=== PATIENT | male | born 1945 | race Caucasian/White ===

== ENCOUNTER 2023-10-25 09:41 | Inpatient (IN) | payer MEDICARE ==
[~2023-10-25] VITALS: Ht 182.9 cm; Wt 111.9 kg
[2023-10-25] VITALS (13 sets, daily range): BP systolic 92–173; BP diastolic 52–123; PULSE 58–92; TEMP 97.5–98.5
[~2023-10-25 09:41] MED LIST: ALBUTEROL SULFAT3 M3 IH; AMOXICILLIN 8751 TAB PO; ASPIRIN E.C. 8181 MG PO; ATROVENT I0.2 MG/1 M IH; CHLOR TRIMETON 44 MG PO; CORDARONE200 MG/TAB PO; COUMADIN 3MG3 MG/TAB PO; CRESTOR 10MG10 MG PO; ELIQUIS 5MG PO; GOOD SENSE400 MG/5 M PO; IMODIUM A-D2 MG PO; K-DUR 10 MEQ T10 MEQ PO; LASIX 40MG TABL40 MG PO; LIPITOR 40MG TA40 MG PO; LOPRESSOR 550 MG/TAB PO; MAG-AL LIQUID 230 ML PO; MASON NATURAL2000 IU PO; MULTI VITAMINS1 TAB PO; MULTIPLE VITAMI1 CAP PO; NO HOME MEDICATIONS; NORCO 325 MG-101 TAB PO; OMNICEF 300MG300 MG PO; PACERONE200 MG PO; PEPCID 20MG TAB20 MG PO; PERCOCET 325 MG1 TA2 PO; PLAVIX 75MG TAB75 MG PO; PRAVACHOL80 MG PO; PRINIVIL20 MG PO; PRINZIDE 25 MG-1 TAB PO; PROAIR HFA0.09 MG/AC IH; PROTONIX 40MG T40 MG PO; PULMICORT0.5 MG/2 M IH; SENEXON-S 50-81 EACH PO; TAMBOCOR50 MG PO; TENORMIN 2525 MG/TAB PO; TOPROL XL 25MG25 MG PO; TOPROL XL 50MG50 MG PO; TYLENOL 325MG325 MG PO; TYLENOL 500MG500 MG PO; ULTRAM 50MG TAB50 MG PO; XALATAN EYE DROPS OD; XARELTO20 MG PO; ZITHROMAX 250M250 MG PO; ZYLOPRIM 100MG100 MG PO; ZYRTEC 10MG10 MG PO
[2023-10-25] MEDS ORDERED: NS 1,000 ML IV ONE (09:45)
[2023-10-25 10:40] LABS: BASO % 0.4 % (0.0-2.0); EOS % 0.1 % (0.0-4.0); GRAN # 7.4 K/mm3 (1.4-6.5); HEMATOCRIT 43.9 % (42.0-52.0); HEMOGLOBIN 13.7 g/dl (13.5-18.0); LYMPH # 1.7 K/mm3 (1.2-3.4); MEAN CELL VOLUME 88 fl (80.0-100.0); MEAN CORPUSCULAR HEMOGLOBIN 27 pg (27-31); MEAN CORPUSCULAR HGB CONC 31 g/dl (33.0-37.0); MEAN PLATELET VOLUME 11.9 fl (7.4-10.4); MONO # 0.6 K/mm3 (0.1-0.6); MONO % 6.3 % (1.7-9.3); PLATELET COUNT 161 K/mm3 (130-400); REDCELL DISTRIBUTION WIDTH-CV 15.9 % (11.5-14.5)
[2023-10-25 10:55] LABS: ALBUMIN 2.9 g/dL (3.4-4.8); BILIRUBIN,TOTAL 0.8 mg/dL (0.2-1.2); CALCIUM 9.5 mg/dL (8.4-10.2); CREATININE, serum 1.57 mg/dL (0.72-1.25); POTASSIUM 3.1 mEq/L (3.5-4.5); TOTAL PROTEIN 6.8 g/dl (6.2-8.1)
[2023-10-25 10:58] LABS: INR 1.1 (0.8-3.0); PROTHROMBIN TIME 11.5 SECONDS (9.7-12.8)
[2023-10-25 11:01] LABS: TROPONIN-I 0.022 ng/mL (0.00-0.033)
[2023-10-25 14:15] LABS: COLLECTION METHOD CLEAN CATCH
[2023-10-25 14:25] LABS: URINE APPEARANCE CLEAR (CLEAR/HAZY); URINE BLOOD NEGATIVE (NEGATIVE); URINE COLOR YELLOW (YELLOW); URINE GLUCOSE NEGATIVE (NEGATIVE); URINE KETONE TRACE (NEGATIVE); URINE NITRATE NEGATIVE (NEGATIVE); URINE PROTEIN(semi-quant) TRACE (NEGATIVE)
[2023-10-25] MEDS ORDERED: TYLENOL 500MG500 MG PO (14:29)
[2023-10-25 14:31] LABS: TRICYCLIC ANTIDEPRESS URINE NEGATIVE (NEGATIVE)
[2023-10-25] MEDS ORDERED: MILK OF MA400 MG/52 PO (14:35)
[2023-10-25] MEDS ORDERED: LASIX 20MG TABL20 MG PO (14:35)
[2023-10-25] MEDS ORDERED: MELATONIN5 M1 PO (14:35)
[2023-10-25] MEDS ORDERED: CELEXA 20MG20 MG/TAB PO (14:36)
[2023-10-25] MEDS ORDERED: DESYREL 50MG50 MG PO (14:37)
[2023-10-25] MEDS ORDERED: ARICEPT10 MG PO (14:37)
[2023-10-25] MEDS ORDERED: ARTIFICIAL TEAR15 M7 OP (14:38)
[2023-10-25] MEDS ORDERED: MIRALAX PA17 GM/Dose PO (14:39)
--- NOTE | 2023-10-25 14:57 | NUR ---
PATIENT ADMITTED TO MEDICAL UNIT. ADMISSION INTAKE AND ASSESSMENT COMPLETED. MED REC UPDATED USING RECORD SENT FROM RESIDENTIAL FACILITY. PATIENT FOLLOWS COMMANDS AND ANSWERS SOME QUESTIONS. SPEECH IS SIGNIFICANTLY SLURRED AND DIFFICULT TO UNDERSTAND. BED ALARMS IN, CALL LIGHT WITHIN REACH, FALL PRECAUTIONS IN PLACE. EXTERNAL CATHETER REMOVED DUE TO PATIENT PULLING IT OFF. WILL CONTINUE TO MONITOR.
[2023-10-25] MEDS ORDERED: Dextrose 50% Water 25 GM/50 ML SYRINGE IV PRN (15:00)
[2023-10-25] MEDS ORDERED: *Potassium Replacement Protocol MC SCH (15:15)
[2023-10-25] MEDS ORDERED: NS 1,000 ML IV SCH (15:15)
[2023-10-25] MEDS ORDERED: Potassium Chloride 100 ML IV SCH (15:15)
[2023-10-25] MEDS ORDERED: Metoprolol Tartrate 5 MG/5 ML VIAL IV SCH (15:45)
[2023-10-25] MEDS ORDERED: Ondansetron 4 MG/2 ML VIAL IV PRN (15:45)
[2023-10-25] MEDS ORDERED: Carboxymethylcellulose PF Ophth 0.4 ML DROPPERETTE OP SCH (17:00)
[2023-10-25] MEDS ORDERED: Insulin Lispro (HumaLOG) SQ SCH (18:00)
--- NOTE | 2023-10-25 18:58 | NUR ---
THIS RN COMPLETED A BEDSIDE SWALLOW STUDY AT THIS TIME. PATIENT TOLERATED NECTAR THICKENED LIQUIDS AND APPLESAUCE WITH NO CHOKING OR COUGHING. THIS RN NOTIFIED ARNOLDO GROSS. SHE INSTRUSTED THIS RN TO KEEP THE PATIENT NPO FOR NOW. PASSED ALONG IN REPORT TO ONCOMING RN.
--- NOTE | 2023-10-25 20:00 | NUR ---
UPON SHIFT ASSESSMENT, PATIENT WAS AWAKE IN BED, AXO X1 TO SELF. SPEECH IS MUMMBLED AND HARD TO UNDERSTAND. PATIENT WILL FOLLOW MINIMAL VERBAL COMMANDS. WILL MOVE ALL EXTREMITIES ON BED AND HAS TO BE REMINDED NOT TO PULL IV OUT. RT EYE SHOWS SIGNIFICANT REDNESS ON LOWER LID. PATIENT REMAINS ON NPO STATUS. PATIENT ASKED FOR VOLUME TO TV BE TURNED UP, PATIENT ATTEMPTED TO HAVE CONVERSATION BUT SPEECH INCOHERENT. THIS SEEMS TO BE BASELINE FOR PATIENT PER DAYSHIFT REPORT. VS ARE WNL. TELE IS AFIB WITH BBB. HR 85 BPM.
--- NOTE | 2023-10-25 20:20 | NUR ---
PT CPAP HELD DUE TO AMS. PT ON RA SATTING 93%.
[2023-10-25] MEDS ORDERED: Latanoprost 0.005% Ophth Soln 2.5 ML BOTTLE OP SCH (21:00)
--- NOTE | 2023-10-25 21:00 | NUR ---
NEW IV 20 G TO LT AC INITIATED BY CHARGE NURSE SANDRA, PATIENT WILL BE ADMINISTERED AMIODARONE IV. PATIENT VOMITTED. PRN ZOFRAN GIVEN.
[2023-10-25] MEDS ORDERED: Amiodarone 450 MG in D5W Excel 250 ML IV SCH (21:47)
[2023-10-25] MEDS ORDERED: Acetaminophen 325 MG TAB PO PRN (22:30)
[2023-10-26] VITALS (13 sets, daily range): BP systolic 101–156; BP diastolic 49–95; PULSE 63–89; TEMP 97.5–98.2
--- NOTE | 2023-10-26 00:58 | NUR ---
PATIENT CONTINUES TO HAVE AMS. CALL PLACED TO [facility]. PATIENT UPON SHIFT CHANGE (18:30) WAS CONFUSED BUT ALERT. RESPONDED TO VOICE AND TOUCH, WAS ABLE TO FOLLOW OCCASIONAL VERBAL COMMANDS. RECENT NEURO CHECK (39) PATIENT SEEMED LETHARGIC. RE ASSESSED MENTAL STATUS WITH HOSPITALIST ASSISSTANJULIAN. PATIENT BECAME FULLY AWAKE AND YELLED, "LET ME SLEEP, SLEEP." PATIENT NOW ABLE TO FOLLOW SOME COMMANDS BUT IS ONLY ORIENTED TO SELF. PATIENT GROWING INCREASINGLY AGGITATED BY ASSESSMENT. YELLS AGAIN, "SLEEP!" VS ARE WNL AND TELE REMAINS THE SAME-AFIB WITH BBB 60 BPM. PATIENT REFUSES SCD'S.
--- NOTE | 2023-10-26 01:12 | NUR ---
PATIENT NEUROS BASELINE. PATIENT RESTING. HAS REPEATEDLY SHOUTED TO BE LEFT ALONE.
--- NOTE | 2023-10-26 03:34 | NUR ---
WHILE PERFORMING Q 2HR CHECK AND CHANGE, PATIENT BECAME AGGITATED AND YELLED, "QUIT IT." HE ATTEMPTED TO PINCH SHAMIR LORENZO AND THIS NURSE. HE HAD TO BE REMINDED TO NOT PULL OUT IV AND 2 BALNKETS WERE APPLIED TO DISGUISE IV SITE. PATIENT WOULD NOT ALLOW LATOYA WRAP OR HANDLING OF ARMS WHATSOEVER. IV DISLODGEMENT IS POTENTIAL PROBLEM.
--- NOTE | 2023-10-26 03:41 | NUR ---
PATIENT SCREAMING "SHUT ALL DAMN LIGHTS OFF." EXPLAINED TO PATIENT THAT [facility] LIGHTS HAD TO BE LEFT ON ASKED APTIENT IF CLOSING HIS DOOR WOULD HELP, AGAIN PATIENT SCREAMED, "SHUT ALL DAMN LIGHTS OFF. SHUT THE HELL UP."
--- NOTE | 2023-10-26 05:04 | NUR ---
CALL PLACED TO HOSPITALIST GINNY, PATIENT AGITATION INCREASING, HAS NOW PULLED OUT IV AND CONTINUES TO BE COMBATIVE WHEN ADMINISTERING CARE. ATTEMPTED TO PINCH THIS NURSE AGAIN.. TORB FOR ATIVAN GIVEN.
[2023-10-26] MEDS ORDERED: LORazepam 2 MG/ML 1 ML VIAL IV ONE (05:15)
[2023-10-26 06:33] LABS: BASO # 0.1 K/mm3 (0.0-0.2); BASO % 0.6 % (0.0-2.0); EOS # 0.1 K/mm3 (0.0-0.7); EOS % 1.7 % (0.0-4.0); GRAN # 5.2 K/mm3 (1.4-6.5); GRAN % 65.8 % (42.2-75.2); HEMATOCRIT 40.7 % (42.0-52.0); HEMOGLOBIN 12.8 g/dl (13.5-18.0); LYMPH # 1.6 K/mm3 (1.2-3.4); LYMPH % 20.6 % (20.0-51.0); MEAN CELL VOLUME 89 fl (80.0-100.0); MEAN CORPUSCULAR HEMOGLOBIN 28 pg (27-31); MEAN CORPUSCULAR HGB CONC 31 g/dl (33.0-37.0); MEAN PLATELET VOLUME 12.3 fl (7.4-10.4); MONO # 0.9 K/mm3 (0.1-0.6); MONO % 11.2 % (1.7-9.3); PLATELET COUNT 158 K/mm3 (130-400); RED BLOOD COUNT 4.59 M/mm3 (4.20-5.60); REDCELL DISTRIBUTION WIDTH-CV 15.9 % (11.5-14.5)
[2023-10-26 06:57] LABS: CALCIUM 9.1 mg/dL (8.4-10.2); CHOLESTEROL RISK RATIO 3.9; CREATININE, serum 1.17 mg/dL (0.72-1.25); MAGNESIUM 1.5 mg/dL (1.6-2.6); POTASSIUM 3.8 mEq/L (3.5-4.5)
[2023-10-26] MEDS ORDERED: Potassium Chloride 100 ML IV SCH (09:00)
--- NOTE | 2023-10-26 09:00 | NUR ---
PATIENT IN BED AND CALLING OUT FOR NURSE. THIS RN ENTERED ROOM AND PLACED PATIENT ON BEDPAN. PATIENT HAD A LIQUID BOWEL MOVEMENT AND REQUIRED A BED CHANGE. A NEW IV WAS STARTED TO THE L FOREARM SO PATIENT COULD RECEIVE IV POTASSIUM. PATIENT REMAINS NPO AT THIS TIME. IVF AND AMIO GTT INFUSING. MORNING MEDICATIONS GIVEN PER eMAR. PATIENT DENIES ANY PAIN OR NEEDS AT THIS TIME. WILL CONTINUE TO MONITOR. BED ALARM IN PLACE. CALL LIGHT WITHIN REACH.
[2023-10-26] MEDS ORDERED: PERCOCET 325 MG1 TA2 PO (10:32)
[2023-10-26] MEDS ORDERED: Amiodarone 200 MG TAB PO SCH (11:36)
[2023-10-26] MEDS ORDERED: Magnesium Sulfate 8% 50 ML IV ONE (11:45)
--- NOTE | 2023-10-26 11:55 | NUR ---
EVAN contacted patient's son listed as his NOK/emergency contact Olu Farrell at [phone]. Olu confirmed that his father/patient was currently residing in senior living with [facility]. He was not sure who his current PCP is; pharmacy of choice is [facility]. Olu shared that since his stroke he has been in wheelchair and not independent with ADLs; at this time that is the only DMEs that he is tracking that patient uses. EVAN inquired about DPOA- pending confirmation on this with patients son. Discharge plan: (pending) discharge back to senior living [facility].
--- NOTE | 2023-10-26 12:22 | NUR ---
PATIENT PLACE ON PUREED DIET WITH THICKENED LIQUIDS AND TOLERATING WELL. PATIENT ABLE TO TAKE MEDICATIONS CRUSHED IN APPLESAUCE WITH NO ISSUE. AMIO GTT DISCONTINUED PER ORDERS. WILL CONTINUE TO MONITOR.
--- NOTE | 2023-10-26 14:20 | NUR ---
PATIENT HAVING MULTIPLE INCONTINENT LIQUID STOOLS. DR. AVENDAÑO NOTIFIED AND INSTRUCTED THIS RN TO OBTAIN A STOOL SAMPLE.
--- NOTE | 2023-10-26 20:15 | NUR ---
Initial shift assessment done- sitting at edge of bed, confused, wants to get up and talking about overalls and a pick-up. Attempted to re-oriente, Speech slurred, hard to understand. o2 at 2L/nc, IV fluids of NS at 75cc/hr, still need stool specimen for c-diff, but no stools since order given. Bed alarm on, call light in reach, close to nsg station. Tele on Afib.
[2023-10-27] VITALS (12 sets, daily range): BP systolic 100–154; BP diastolic 57–95; PULSE 60–80; TEMP 97.4–98.1
[2023-10-27] MEDS ORDERED: LORazepam 2 MG/ML 1 ML VIAL IV ONE (00:15)
--- NOTE | 2023-10-27 06:00 | NUR ---
Did get just the once dose of IV Ativan during the night and slept fairly well for 4 hours, VSS, remains very confused-
[2023-10-27] MEDS ORDERED: Dextrose 50% Water 25 GM/50 ML SYRINGE IV PRN (07:15)
[2023-10-27] MEDS ORDERED: Dextrose (Glucose) 15 GM (4 x 3.75 GM) Chewable TABLET PACK PO PRN (07:15)
[2023-10-27] MEDS ORDERED: Glucagon 1 MG VIAL IM PRN (07:15)
[2023-10-27] MEDS ORDERED: Furosemide 20 MG TAB PO SCH (09:00)
[2023-10-27] MEDS ORDERED: Citalopram 20 MG TAB PO SCH (09:00)
[2023-10-27] MEDS ORDERED: Acetaminophen 325 MG TAB PO ONE (10:15)
--- NOTE | 2023-10-27 11:31 | NUR ---
Patient awake, alert, confused. Oriented to self, agitated at times, raising voice. Does not have dentures with him, unable to eat solid foods but does not like pureed diet. Discussed with battery hand. Nasal cannula in place. Garbled speech. Blind in R eye. Fall precautions in place. Bed in lowest position with call light within reach. Denies further needs at this time.
--- NOTE | 2023-10-27 11:41 | NUR ---
X2 incontinent stool episodes this AM, loose, brown. Incontinent care provided, stool sample sent to lab.
[2023-10-27 12:12] LABS: CLOSTRIDIUM DIFF A/B NEG
--- NOTE | 2023-10-27 13:22 | NUR ---
Social Work student faxed updates to Stan at [facility].
--- NOTE | 2023-10-27 18:07 | NUR ---
Patient agitated, upset over pureed diet. Raising voice at nursing staff when trying to test blood glucose. Pt refusing to have blood sugar taken, swinging fist at staff when asking to have a finger to test. Bed in lowest position with call light within reach, bed alarm on.
[2023-10-27] MEDS ORDERED: Acetaminophen Oral Susp 325 MG/10.15 ML UD PO PRN (20:30)
--- NOTE | 2023-10-27 23:17 | NUR ---
PT lying in bed, alert and oriented to self only. denies chest pain and reports some shortness of breath along with some discomfort when coughing, 2020- Dr. Leblanc notified about only RC tylenol, request for an oral solution, new orders placed, tylenol given for discomfort. IV in LF is patent, site CDI. general small scattered bruises on extremities, dry scaly BLE, bilateral heels with closed black scabs, left heel with a mepilex dressing, right heel dressing fell off, bilateral heels are CDI. pt has no further needs,questions, or concerns at this time. fall precautions in place, call light within reach. will continue to monitor.
[2023-10-28] VITALS (13 sets, daily range): BP systolic 100–153; BP diastolic 62–96; PULSE 68–90; TEMP 97.5–98.5
[2023-10-28] MEDS ORDERED: LORazepam 2 MG/ML 1 ML VIAL IV ONE (11:00)
[2023-10-28] MEDS ORDERED: Apixaban 5 MG TABLET PO SCH (14:19)
--- NOTE | 2023-10-28 14:50 | NUR ---
Finish Sander sent clinical updates via secure email to Stan at [facility]. SW attempted to contact patient's son, Olu and left a voicemail.
--- NOTE | 2023-10-28 15:29 | NUR ---
Patient alert and oriented to self and situation/location. Following verbal commands. Mood slightly irritable this morning. One time dose Ativan administered prior to MRI for agitation and anxiety, patient tolerated well. Complaining of heel pain, mepilex applied and heels floated. Tolerating puree diet well. Update provided to [facility]. Call light within reach, all needs met at this time.
--- NOTE | 2023-10-28 22:44 | NUR ---
Patient lying in bed, alert oriented to self with off and on confusion. denies chest pain and shortness of breath. dry, cracked and scaly BLE, scabs on bilateral heels, pt continues to take mepilex dressings off heels, scattered bruising noted on extremities. IV in LF is patent, site is CDI. pt has no further needs, questions, or concerns at this time. fall precautionsin place, call light within reach. will continue to monitor.
[2023-10-29 03:38] VITALS: BP 143/66; PULSE 82; TEMP 97.7
[2023-10-29 03:57] VITALS: BP_SYST 143
[2023-10-29 08:10] VITALS: BP 158/93; PULSE 78; TEMP 97.7
[2023-10-29 09:02] VITALS: BP_SYST 158
--- NOTE | 2023-10-29 09:35 | NUR ---
PATIENT RESTING IN BED. ALERT AND ORIENTED X2-3 TO BASELINE. SHIFT ASSESSMENT COMPLETE. SCABS TO BILAT HEELS NOTED. SKIN IS CDI. PATIENT DENIES NEEDS OR CONCERNS AT THIS TIME. ALL NEEDS MET. CALL LIGHT WITHIN REACH.
[2023-10-29 11:54] VITALS: BP 123/66; PULSE 70; TEMP 97.4
--- NOTE | 2023-10-29 12:59 | NUR ---
Production Painter was notified patient is ready for discharge today. EVAN contacted Stan at [facility] and EVAN Tate student faxed orders. SW attempted to contact patient's son, Olu and left a message requesting a call back to update on discharge. Transport time was set for 1300. Discharge Plan: [facility]
--- NOTE | 2023-10-29 13:15 | NUR ---
PATIENT ESCORTED OFF UNIT VIA WHEELCHAIR WITH VIA [facility] STAFF. ALL BELONGINGS WITH PATIENT.
== END 2023-10-29 13:15 | DRG 64 ==
LOC: COL.ER 09:41 → MEDICAL 12:21
PROVIDERS: Emergency Medicine; Internal Medicine; ADMIT Internal Medicine
DX: I63.443 Cerebral infarction due to embolism of bilateral cerebellar arteries (principal); J96.01 Acute respiratory failure with hypoxia; F03.93 Unspecified dementia, unspecified severity, with mood disturbance; I13.0 Hypertensive heart and chronic kidney disease with heart failure and stage 1 through stage 4 chronic kidney disease, or unspecified chronic kidney disease; I50.22 Chronic systolic (congestive) heart failure; I45.2 Bifascicular block; I48.19 Other persistent atrial fibrillation; R47.1 Dysarthria and anarthria; I25.10 Atherosclerotic heart disease of native coronary artery without angina pectoris; N18.9 Chronic kidney disease, unspecified; G47.33 Obstructive sleep apnea (adult) (pediatric); Z66 Do not resuscitate; R29.810 Facial weakness; K21.9 Gastro-esophageal reflux disease without esophagitis; R29.701 NIHSS score 1; J44.9 Chronic obstructive pulmonary disease, unspecified; R47.81 Slurred speech; R13.10 Dysphagia, unspecified; M10.9 Gout, unspecified; I69.312 Visuospatial deficit and spatial neglect following cerebral infarction; Z95.5 Presence of coronary angioplasty implant and graft; Z90.49 Acquired absence of other specified parts of digestive tract; Z79.899 Other long term (current) drug therapy; Z79.01 Long term (current) use of anticoagulants; Z87.891 Personal history of nicotine dependence; Z23 Encounter for immunization
CPT/HCPCS: J0282; J2060; J2405; J3475; J3480; J7030; J7060; Q3014